=== PATIENT | female | born 1950 | race Two or more races ===

== ENCOUNTER → 2017-11-11 | Outpatient (CLI) | payer MEDICARE, OTHER ==
[~2017-11-11] MED LIST: ADENOSINE 60 MG in GIVE UN-DILUTED 0 ML IV ONE; ADENOSINE 90 MG/30 ML INJ IV ONE; ESOM40CA39; LEVO100T83; LORA-622; PREMARIN
[2017-11-11 12:14] LABS: Basophils # (auto) 0.1 uL; Basophils % (auto) 1.1 % (0.0-2.0); Eosinophils # (auto) 0.2 uL; Eosinophils % (auto) 3.4 % (0.0-7.0); Hematocrit 43.8 % (36.0-46.0); Hemoglobin 14.7 g/dL (12.2-16.2); Lymphocytes % (auto) 30.1 % (10.0-50.0); Mean Corpuscular Hemoglobin 30.8 pg (28.0-32.0); Mean Corpuscular Hgb Conc. 33.5 g/dL (32.0-36.0); Mean Corpuscular Volume 91.8 fL (80.0-100.0); Monocytes # (auto) 0.5 uL; Neutrophils # (auto) 3.8 uL; Neutrophils % (auto) 58.4 % (37.0-80.0); Platelet Count (auto) 227 10^3/uL (140-450); Red Blood Cells 4.76 10^6/uL (4.0-5.20); Red Cell Distribution Width 14.7 % (11.8-14.3); White Blood Cell 6.5 10^3/uL (4.4-10.8)
[2017-11-11 12:27] LABS: Free T4 (Free Thyroxine) 1.16 ng/dL (0.89-1.76)
[2017-11-11 12:45] LABS: Albumin 3.6 g/dL (3.4-5.0); BUN/Creatinine Ratio 19.8; Bilirubin, Total 0.6 mg/dL (0.2-1.0); Calcium 7.8 mg/dL (8.5-10.1); Potassium 3.6 mmol/L (3.5-5.1); Total Protein 7.4 g/dL (6.4-8.2)
[2017-11-11 17:07] LABS: Urine Blood Negative /uL (Negative); Urine Specific Gravity 1.027 (1.001-1.035)
== END | disposition home or self-care (01) ==
LOC: Rad HDHVI 09:32
PROVIDERS: ATTEND Internal Medicine Cardiovascular Disease
DX: E78.00 Pure hypercholesterolemia, unspecified (principal); D64.9 Anemia, unspecified; I10 Essential (primary) hypertension; E03.9 Hypothyroidism, unspecified; E11.9 Type 2 diabetes mellitus without complications; E55.9 Vitamin D deficiency, unspecified; K74.1 Hepatic sclerosis; D51.9 Vitamin B12 deficiency anemia, unspecified; N39.0 Urinary tract infection, site not specified; E78.5 Hyperlipidemia, unspecified; R94.31 Abnormal electrocardiogram [ECG] [EKG]; R42 Dizziness and giddiness; R07.89 Other chest pain
CPT/HCPCS: 36415; 78452; 80053; 80061; 81003; 82306; 82607; 83036; 84439; 84443; 85025; 93005; 96374; 96375; A9500; J0153

== ENCOUNTER → 2017-12-30 | Outpatient (CLI) | payer MEDICARE, OTHER ==
[~2017-12-30] MED LIST changes: -ADENOSINE 60 MG in GIVE UN-DILUTED 0 ML IV ONE; -ADENOSINE 90 MG/30 ML INJ IV ONE
== END | disposition home or self-care (01) ==
LOC: Rad HDHVI 12:59
PROVIDERS: ATTEND Internal Medicine Cardiovascular Disease
DX: I10 Essential (primary) hypertension (principal); R07.89 Other chest pain; E11.9 Type 2 diabetes mellitus without complications
CPT/HCPCS: 93306

== ENCOUNTER → 2018-10-15 | Outpatient (CLI) | payer MEDICARE, OTHER ==
[2018-10-15 11:53] LABS: Basophils # (auto) 0.1 uL; Basophils % (auto) 1.7 % (0.0-2.0); Eosinophils # (auto) 0.3 uL; Eosinophils % (auto) 5.1 % (0.0-7.0); Hematocrit 47.8 % (36.0-46.0); Hemoglobin 15.9 g/dL (12.2-16.2); Lymphocytes # (auto) 2.1 uL; Lymphocytes % (auto) 37.9 % (10.0-50.0); Mean Corpuscular Hgb Conc. 33.3 g/dL (32.0-36.0); Mean Corpuscular Volume 96.1 fL (80.0-100.0); Monocytes # (auto) 0.5 uL; Monocytes % (auto) 8.3 % (0.0-12.0); Neutrophils # (auto) 2.6 uL; Nucleated Red Blood Cells % 0.3 %; Platelet Count (auto) 201 10^3/uL (140-450); Red Blood Cells 4.98 10^6/uL (4.0-5.20); Red Cell Distribution Width 13.5 % (11.8-14.3); White Blood Cell 5.4 10^3/uL (4.4-10.8)
[2018-10-15 11:54] LABS: Urine Blood Negative /uL (Negative); Urine Specific Gravity 1.017 (1.001-1.035)
[2018-10-15 12:02] LABS: Chloride 111 mmol/L (98-107); Potassium 3.6 mmol/L (3.5-5.1); Sodium 140 mmol/L (136-145)
[2018-10-15 12:18] LABS: Alanine Aminotransferase 61 U/L (13-56); Albumin 3.5 g/dL (3.4-5.0); Alkaline Phosphatase 103 U/L (45-117); Anion Gap 9 (5-15); Aspartate Aminotransferase 49 U/L (15-37); Bilirubin, Total 0.6 mg/dL (0.2-1.0); Blood Urea Nitrogen 16 mg/dL (7-18); Calcium 8.4 mg/dL (8.5-10.1); Carbon Dioxide 20 mmol/L (21-32); Cholesterol 129 mg/dL (< 200); GFR African American > 60 mL/min; GFR Non-African American 59 mL/min; Glucose 102 mg/dL (74-106); HDL Cholesterol 50 mg/dL (40-59); LDL Cholesterol 56 mg/dL (< 100); Total Protein 7.3 g/dL (6.4-8.2); Triglycerides 249 mg/dL (< 150)
[2018-10-15 12:30] LABS: Free T4 (Free Thyroxine) 1.53 ng/dL (0.89-1.76)
== END | disposition home or self-care (01) ==
LOC: LAB 09:15
PROVIDERS: ATTEND Internal Medicine
DX: E03.9 Hypothyroidism, unspecified (principal); E11.9 Type 2 diabetes mellitus without complications; D51.9 Vitamin B12 deficiency anemia, unspecified; N39.0 Urinary tract infection, site not specified; E55.9 Vitamin D deficiency, unspecified
CPT/HCPCS: 36415; 80053; 80061; 81003; 82306; 82607; 83036; 84439; 84443; 85025; 87086

== ENCOUNTER → 2018-11-06 | Outpatient (CLI) | payer MEDICARE, OTHER ==
[~2018-11-06] VITALS: Ht 157.5 cm; Wt 75.3 kg
[~2018-11-06] MED LIST changes: +ADENOSINE 63 MG in GIVE UN-DILUTED 0 ML IV ONE; +ADENOSINE 90 MG/30 ML INJ IV ONE
== END | disposition home or self-care (01) ==
LOC: Rad HDHVI 13:49
PROVIDERS: ATTEND Internal Medicine Cardiovascular Disease
DX: I07.1 Rheumatic tricuspid insufficiency (principal); I10 Essential (primary) hypertension; M19.90 Unspecified osteoarthritis, unspecified site; E03.9 Hypothyroidism, unspecified; E78.5 Hyperlipidemia, unspecified
CPT/HCPCS: 78452; 93017; 93306; 96374; A9500; J0153

== ENCOUNTER → 2018-11-28 | Outpatient (CLI) | payer MEDICARE, OTHER ==
[~2018-11-28] MED LIST changes: -ADENOSINE 63 MG in GIVE UN-DILUTED 0 ML IV ONE; -ADENOSINE 90 MG/30 ML INJ IV ONE
== END | disposition home or self-care (01) ==
LOC: Rad HDHVI 13:28
PROVIDERS: ATTEND Internal Medicine Cardiovascular Disease
DX: R91.1 Solitary pulmonary nodule (principal); K76.0 Fatty (change of) liver, not elsewhere classified
CPT/HCPCS: 71250

== ENCOUNTER → 2019-11-11 | Outpatient (CLI) | payer MEDICARE, OTHER ==
[~2019-11-11] MED LIST changes: +IOHEXOL 350 MG/ML 100ML IJ ONE; +diphenhdrAMINE HCL 50 MG/1 ML VL IV ONE; +diphenhdrAMINE HCL 50 MG/1 ML VL ONE; +methylPREDNISolone SOD SUCC 125 MG/2 ML VL IV ONE; +methylPREDNISolone SOD SUCC 125 MG/2 ML VL ONE
[2019-11-11 13:15] VITALS: BP 141/80
--- NOTE | 2019-11-11 13:25 | NUR ---
IV insertion IV access obtained, via clean sterile technique by inserting 22 gauge catheter at after attempt(s). IV secured properly. No trauma to site. Patient tolerated procedure well.
[2019-11-11 14:22] LABS: BUN/Creatinine Ratio 14.3; Calcium 8.3 mg/dL (8.5-10.1); Potassium 3.6 mmol/L (3.5-5.1)
[2019-11-11 15:05] VITALS: BP 135/75
--- NOTE | 2019-11-11 15:05 | NUR ---
IV removal IV DC'd with sterile technique, catheter fully intact. Pressure dressing applied to site. Patient tolerated procedure well. Discharged with aftercare instructions per MD. NOTE: REMOVED BY SCOOTER CLIFTON
--- NOTE | 2019-11-11 15:05 | NUR ---
Discharge Instructions See e-MAR for any mediations given with this visit. Patient education given on disease process. Patient verbalized understanding. Previous labs reviewed. Patient discharged in stable condition with after care instructions and follow up appointment. MEDICATIONS BENADRYL IVP SOLUMEDROL IVP Addendum: 11/11/19 at 1516 by JUAN J ADKINS RN AR PT PREMEDICATED PRIOR TO CT DUE TO ALLERGIES TO IODINE. PT TOLERATED THE CT WELL
[2019-11-11 16:01] LABS: Basophils # (auto) 0.1 uL; Basophils % (auto) 1.1 % (0.0-2.0); Eosinophils # (auto) 0.3 uL; Eosinophils % (auto) 4.6 % (0.0-7.0); Hematocrit 46.3 % (36.0-46.0); Hemoglobin 15.8 g/dL (12.2-16.2); Lymphocytes # (auto) 1.9 uL; Lymphocytes % (auto) 32.7 % (10.0-50.0); Mean Corpuscular Hemoglobin 32.4 pg (28.0-32.0); Mean Corpuscular Hgb Conc. 34.2 g/dL (32.0-36.0); Mean Corpuscular Volume 94.8 fL (80.0-100.0); Monocytes # (auto) 0.6 uL; Neutrophils # (auto) 2.9 uL; Neutrophils % (auto) 51.6 % (37.0-80.0); Nucleated Red Blood Cells % 0.5 %; Platelet Count (auto) 219 10^3/uL (140-450); Red Blood Cells 4.88 10^6/uL (4.0-5.20); Red Cell Distribution Width 13.3 % (11.8-14.3); White Blood Cell 5.7 10^3/uL (4.4-10.8)
[2019-11-11 16:13] LABS: Albumin 3.6 g/dL (3.4-5.0); Bilirubin, Direct 0.1 mg/dL (0-0.2); Magnesium 1.9 mg/dL (1.6-2.6)
[2019-11-11 16:16] LABS: Bilirubin, Total 0.7 mg/dL (0.2-1.0); Total Protein 7.3 g/dL (6.4-8.2)
== END | disposition home or self-care (01) ==
LOC: Rad HDHVI 13:02
PROVIDERS: ATTEND Internal Medicine
DX: E03.9 Hypothyroidism, unspecified (principal); K90.9 Intestinal malabsorption, unspecified; I10 Essential (primary) hypertension; D51.9 Vitamin B12 deficiency anemia, unspecified; R91.8 Other nonspecific abnormal finding of lung field; Z79.899 Other long term (current) drug therapy
CPT/HCPCS: 36415; 80048; 80061; 80076; 82306; 82607; 83036; 83735; 84443; 85025; 96374; 96375; G0463; J1200; J2930; Q9967

== ENCOUNTER → 2020-04-12 | Outpatient (CLI) | payer MEDICARE, OTHER ==
[~2020-04-12] MED LIST changes: -IOHEXOL 350 MG/ML 100ML IJ ONE; -diphenhdrAMINE HCL 50 MG/1 ML VL IV ONE; -diphenhdrAMINE HCL 50 MG/1 ML VL ONE; -methylPREDNISolone SOD SUCC 125 MG/2 ML VL IV ONE; -methylPREDNISolone SOD SUCC 125 MG/2 ML VL ONE
== END | disposition home or self-care (01) ==
LOC: Rad HDHVI 13:37
PROVIDERS: ATTEND Internal Medicine
DX: R91.1 Solitary pulmonary nodule (principal)
CPT/HCPCS: 71250

== ENCOUNTER → 2020-10-21 | Outpatient (CLI) | payer MEDICARE, OTHER ==
[~2020-10-21] MED LIST changes: +LEVO100T3; -LEVO100T83
== END | disposition home or self-care (01) ==
LOC: Rad HDHVI 15:23
PROVIDERS: ATTEND Internal Medicine Cardiovascular Disease
DX: R06.02 Shortness of breath (principal)
CPT/HCPCS: 71046

== ENCOUNTER → 2021-03-13 | Outpatient (CLI) | payer MEDICARE, OTHER | END | disposition home or self-care (01) | LOC: Rad HDHVI 11:53 | PROVIDERS: ATTEND Internal Medicine | DX: I67.82 Cerebral ischemia (principal); I67.2 Cerebral atherosclerosis; G31.89 Other specified degenerative diseases of nervous system; G93.89 Other specified disorders of brain | CPT/HCPCS: 70450 ==

== ENCOUNTER → 2021-03-23 | Outpatient (CLI) | payer MEDICARE, OTHER ==
[2021-03-23 12:04] LABS: Basophils # (auto) 0.1 10 ^3/uL (0-0.2); Basophils % (auto) 2.1 % (0.0-2.0); Eosinophils # (auto) 0.2 10 ^3/uL (0-0.8); Hematocrit 45.7 % (36.0-46.0); Hemoglobin 15.5 g/dL (12.2-16.2); Lymphocytes # (auto) 2.2 10 ^3/uL (0.4-5.4); Lymphocytes % (auto) 38.5 % (10.0-50.0); Mean Corpuscular Hemoglobin 31.7 pg (28.0-32.0); Mean Corpuscular Hgb Conc. 33.8 g/dL (32.0-36.0); Mean Corpuscular Volume 93.6 fL (80.0-100.0); Monocytes # (auto) 0.5 10 ^3/uL (0-1.3); Monocytes % (auto) 8.5 % (0.0-12.0); Neutrophils # (auto) 2.8 10 ^3/uL (1.6-8.6); Neutrophils % (auto) 47.9 % (37.0-80.0); Nucleated Red Blood Cells % 0.1 %; Platelet Count (auto) 217 10^3/uL (140-450); Red Blood Cells 4.88 10^6/uL (4.0-5.20); Red Cell Distribution Width 13.8 % (11.8-14.3); White Blood Cell 5.8 10^3/uL (4.4-10.8)
[2021-03-23 12:15] LABS: Urine Blood Negative /uL (Negative); Urine Specific Gravity 1.022 (1.001-1.035)
[2021-03-23 12:16] LABS: Albumin 3.4 g/dL (3.4-5.0); Calcium 8.9 mg/dL (8.5-10.1); Potassium 3.6 mmol/L (3.5-5.1)
[2021-03-23 12:21] LABS: Bilirubin, Total 0.6 mg/dL (0.2-1.0); Total Protein 6.9 g/dL (6.4-8.2)
[2021-03-23 12:23] LABS: Free T4 (Free Thyroxine) 1.28 ng/dL (0.89-1.76)
== END | disposition home or self-care (01) ==
LOC: LAB 11:13
PROVIDERS: ATTEND Internal Medicine
DX: D51.3 Other dietary vitamin B12 deficiency anemia (principal); I10 Essential (primary) hypertension; E11.9 Type 2 diabetes mellitus without complications; E55.9 Vitamin D deficiency, unspecified; D64.9 Anemia, unspecified; R00.2 Palpitations; R53.1 Weakness; R30.0 Dysuria
CPT/HCPCS: 36415; 80053; 80061; 81003; 82306; 82607; 83036; 84439; 84443; 85025; 85049

== ENCOUNTER → 2021-05-09 | Outpatient (CLI) | payer MEDICARE, OTHER ==
[~2021-05-09] MED LIST changes: +IOHEXOL 350 MG/ML 100ML IJ ONE; +diphenhdrAMINE HCL 50 MG/1 ML VL IV ONE; +diphenhdrAMINE HCL 50 MG/1 ML VL ONE; +methylPREDNISolone SOD SUCC 125 MG/2 ML VL IM ONE; +methylPREDNISolone SOD SUCC 125 MG/2 ML VL IV ONE; +methylPREDNISolone SOD SUCC 125 MG/2 ML VL ONE
[2021-05-09 14:14] VITALS: BP 126/80
[2021-05-09 15:56] VITALS: BP 148/80
== END | disposition home or self-care (01) ==
LOC: Rad HDHVI 13:10
PROVIDERS: ATTEND Internal Medicine
DX: I70.0 Atherosclerosis of aorta (principal); K76.0 Fatty (change of) liver, not elsewhere classified; R07.9 Chest pain, unspecified; R06.02 Shortness of breath; R42 Dizziness and giddiness; R94.4 Abnormal results of kidney function studies; I10 Essential (primary) hypertension; E11.9 Type 2 diabetes mellitus without complications; E55.9 Vitamin D deficiency, unspecified; R53.1 Weakness; D51.9 Vitamin B12 deficiency anemia, unspecified
CPT/HCPCS: 36415; 71260; 82565; 96374; 96375; G0463; J1200; J2930; Q9967

== ENCOUNTER 2021-06-21 08:56 | Day surgery (SDC) | payer MEDICARE, OTHER ==
[~2021-06-21] VITALS: Ht 157.5 cm; Wt 74.8 kg
[~2021-06-21 08:56] MED LIST changes: +ALBUAER3 IN; +ASPI1TAB19 PO; +CHOL20007 PO; +CYCL-614 PO; -ESOM40CA39; +EST0625T PO; +FLUT1AER3 IN; +FURO20TA3 PO; -IOHEXOL 350 MG/ML 100ML IJ ONE; -LEVO100T3; +LEVO100T3 PO; -LORA-622; +LORA-622 PO; +NITR0.4S29 SL; +OMEP-263 PO; +POTA8TAB2 PO; -PREMARIN; +ROSU40TA PO; +VITA400T4 PO; -diphenhdrAMINE HCL 50 MG/1 ML VL IV ONE; -diphenhdrAMINE HCL 50 MG/1 ML VL ONE; -methylPREDNISolone SOD SUCC 125 MG/2 ML VL IM ONE; -methylPREDNISolone SOD SUCC 125 MG/2 ML VL IV ONE; -methylPREDNISolone SOD SUCC 125 MG/2 ML VL ONE
[2021-06-21] MEDS ORDERED: IODIXANOL 320MG/ML 100ML BTL IV ONE (09:37)
[2021-06-21] MEDS ORDERED: LIDOCAINE 2%HCL (LOCAL ANESTH.) INJ 20ML MDV ONE (09:38)
[2021-06-21] MEDS ORDERED: VERAPAMIL 2.5MG/ML INJ 2ML VIAL IV ONE (09:47)
[2021-06-21] MEDS ORDERED: HEPARIN SODIUM (PORCINE) 5000 UNITS/ML 1ML VIAL ONE (09:47)
[2021-06-21] MEDS ORDERED: diphenhdrAMINE HCL 50 MG/1 ML VL ONE (09:47)
[2021-06-21] MEDS ORDERED: ANGIOMAX 250 MG VIAL IV ONE (09:47)
[2021-06-21] MEDS ORDERED: methylPREDNISolone SOD SUCC 125 MG/2 ML VL ONE (09:47)
[2021-06-21] MEDS ORDERED: SODIUM CHL 0.9% 0 ML ONE (09:48)
[2021-06-21] MEDS ORDERED: fentaNYL CITRATE 100 MCG/2 ML VL ONE (09:48)
[2021-06-21] MEDS ORDERED: MIDAZOLAM HCL 2MG/2ML 2ml VIAL (1mg/ml) ONE (09:48)
[2021-06-21] MEDS ORDERED: FAMOTIDINE (10MG/ML) 2ML VL IV ONE (09:49)
[2021-06-21] MEDS ORDERED: ONDANSETRON HCL 4 MG/2 ML VIAL IV PRN (10:45)
[2021-06-21] MEDS ORDERED: ACETAMINOPHEN 500 MG TAB PO PRN (10:45)
== END 2021-06-21 13:10 | disposition home or self-care (01) ==
LOC: CATH 08:56
PROVIDERS: ATTEND Internal Medicine
DX: I25.10 Atherosclerotic heart disease of native coronary artery without angina pectoris (principal); I10 Essential (primary) hypertension; E78.5 Hyperlipidemia, unspecified; Z79.82 Long term (current) use of aspirin; Z87.891 Personal history of nicotine dependence; Z80.9 Family history of malignant neoplasm, unspecified; Z82.5 Family history of asthma and other chronic lower respiratory diseases; Z20.822 Contact with and (suspected) exposure to COVID-19; Z98.890 Other specified postprocedural states; Z79.899 Other long term (current) drug therapy
CPT/HCPCS: 93458; C1887; C1894; J1200; J1644; J2250; J2930; J3010; J3490; Q9967; U0003; 99152

== ENCOUNTER → 2021-09-07 | Outpatient (CLI) | payer MEDICARE, OTHER ==
[2021-09-07 15:33] LABS: Albumin 3.3 g/dL (3.4-5.0); Calcium 8.2 mg/dL (8.5-10.1); Potassium 3.8 mmol/L (3.5-5.1)
[2021-09-07 15:37] LABS: BUN/Creatinine Ratio 13.1; Bilirubin, Total 0.7 mg/dL (0.2-1.0); Total Protein 6.6 g/dL (6.4-8.2)
== END | disposition home or self-care (01) ==
LOC: LAB 13:05
PROVIDERS: ATTEND Internal Medicine
DX: R94.4 Abnormal results of kidney function studies (principal)
CPT/HCPCS: 36415; 80053

== ENCOUNTER 2021-12-29 12:44 | Emergency (ER) | payer MEDICARE, OTHER ==
[~2021-12-29] VITALS: Ht 157.5 cm; Wt 78.0 kg
[2021-12-29 12:47] VITALS: BP 132/89
[2021-12-29] MEDS ORDERED: KETOROLAC TROMETH 30 MG/ML 1ML VIAL IM ONE (15:30)
== END 2021-12-29 15:39 | disposition home or self-care (01) ==
LOC: ER 12:44
DX: G44.229 Chronic tension-type headache, not intractable (principal); K21.9 Gastro-esophageal reflux disease without esophagitis; Z87.891 Personal history of nicotine dependence
CPT/HCPCS: 70450; 96372; 99284; J1885

== ENCOUNTER 2022-04-11 10:34 | Emergency (ER) | payer MEDICARE, OTHER ==
[~2022-04-11] VITALS: Ht 157.5 cm; Wt 75.3 kg
[2022-04-11] MEDS ORDERED: OMNIPAQUE ORAL SOLN 500ml 12mg/ml PO ONE (11:28)
[2022-04-11 12:17] LABS: Albumin 3.5 g/dL (3.4-5.0); BUN/Creatinine Ratio 10.2; Calcium 9.2 mg/dL (8.5-10.1); Magnesium 1.9 mg/dL (1.6-2.6); Potassium 3.6 mmol/L (3.5-5.1)
[2022-04-11 12:20] LABS: Bilirubin, Total 0.7 mg/dL (0.2-1.0); Total Protein 7.1 g/dL (6.4-8.2)
[2022-04-11 12:29] LABS: Basophils # (auto) 0.1 10 ^3/uL (0-0.2); Basophils % (auto) 1.2 % (0.0-2.0); Eosinophils # (auto) 0.1 10 ^3/uL (0-0.8); Eosinophils % (auto) 1.4 % (0.0-7.0); Hematocrit 46.5 % (36.0-46.0); Hemoglobin 15.8 g/dL (12.2-16.2); Lymphocytes # (auto) 1.1 10 ^3/uL (0.4-5.4); Mean Corpuscular Volume 94.2 fL (80.0-100.0); Monocytes # (auto) 0.6 10 ^3/uL (0-1.3); Monocytes % (auto) 10.2 % (0.0-12.0); Neutrophils # (auto) 4.2 10 ^3/uL (1.6-8.6); Neutrophils % (auto) 69.2 % (37.0-80.0); Nucleated Red Blood Cells % 0.1 %; Red Blood Cells 4.94 10^6/uL (4.0-5.20); Red Cell Distribution Width 13.4 % (11.8-14.3); White Blood Cell 6.1 10^3/uL (4.4-10.8)
[2022-04-11 12:57] LABS: Urine Bacteria MANY /hpf (None Seen); Urine Blood Negative /uL (Negative); Urine Specific Gravity 1.016 (1.001-1.035); Urine WBC 495 /hpf (0 - 5); Urine WBC Clumps PRESENT /hpf (None Seen)
[2022-04-11] MEDS ORDERED: LEVO500T31 PO (15:59)
[2022-04-11 16:24] VITALS: BP 150/76
== END 2022-04-11 16:15 | disposition home or self-care (01) ==
LOC: ER 10:34
DX: N39.0 Urinary tract infection, site not specified (principal); R19.7 Diarrhea, unspecified; K21.9 Gastro-esophageal reflux disease without esophagitis; E03.9 Hypothyroidism, unspecified; Z90.710 Acquired absence of both cervix and uterus; Z87.891 Personal history of nicotine dependence; Z79.82 Long term (current) use of aspirin; Z79.899 Other long term (current) drug therapy; Z88.0 Allergy status to penicillin; Z88.1 Allergy status to other antibiotic agents; Z88.5 Allergy status to narcotic agent; Z88.8 Allergy status to other drugs, medicaments and biological substances
CPT/HCPCS: 36415; 74176; 80053; 81001; 83735; 84484; 85025; 93005

== ENCOUNTER 2022-05-23 06:07 | Day surgery (SDC) | payer MEDICARE, OTHER ==
[2022-05-18 12:41] LABS: Basophils # (auto) 0.1 10 ^3/uL (0-0.2); Basophils % (auto) 1.2 % (0.0-2.0); Eosinophils # (auto) 0.1 10 ^3/uL (0-0.8); Eosinophils % (auto) 1.2 % (0.0-7.0); Hematocrit 43.1 % (36.0-46.0); Hemoglobin 14.4 g/dL (12.2-16.2); Lymphocytes # (auto) 1.1 10 ^3/uL (0.4-5.4); Lymphocytes % (auto) 23.8 % (10.0-50.0); Mean Corpuscular Hemoglobin 31.3 pg (28.0-32.0); Mean Corpuscular Hgb Conc. 33.4 g/dL (32.0-36.0); Mean Corpuscular Volume 93.7 fL (80.0-100.0); Monocytes # (auto) 0.6 10 ^3/uL (0-1.3); Monocytes % (auto) 12.4 % (0.0-12.0); Neutrophils # (auto) 2.9 10 ^3/uL (1.6-8.6); Neutrophils % (auto) 61.4 % (37.0-80.0); Nucleated Red Blood Cells % 0.1 %; Red Blood Cells 4.61 10^6/uL (4.0-5.20); Red Cell Distribution Width 13.6 % (11.8-14.3); White Blood Cell 4.7 10^3/uL (4.4-10.8)
[2022-05-18 13:08] LABS: INR 0.99 (0.9-1.15); Partial Thromboplastin Time 26.8 sec (24.6-33.4)
[2022-05-18 13:09] LABS: Urine Bacteria NONE SEEN /hpf (None Seen); Urine Blood Negative /uL (Negative); Urine Specific Gravity 1.016 (1.001-1.035); Urine WBC <1 /hpf (0 - 5)
[2022-05-18 13:37] LABS: Potassium 3.4 mmol/L (3.5-5.1)
[2022-05-18 13:56] LABS: Albumin 3.3 g/dL (3.4-5.0); BUN/Creatinine Ratio 9.6; Bilirubin, Total 0.7 mg/dL (0.2-1.0); Calcium 8.5 mg/dL (8.5-10.1); Total Protein 6.6 g/dL (6.4-8.2)
[~2022-05-23] VITALS: Ht 157.5 cm; Wt 76.2 kg
[~2022-05-23 06:07] MED LIST changes: -CYCL-614 PO
[2022-05-23] MEDS ORDERED: ceFAZolin 1GM VL ONE (06:48)
[2022-05-23] MEDS ORDERED: ROPIVACAINE 0.5% (5MG/ML) 20ML AMPULE IJ ONE (06:48)
[2022-05-23] MEDS ORDERED: SUCCINYLCHOLINE CHLORIDE 20 MG/ML 10ML VIAL IV ONE (06:52)
[2022-05-23] MEDS ORDERED: fentaNYL CITRATE 100 MCG/2 ML VL ONE (06:57)
[2022-05-23] MEDS ORDERED: SODIUM CHLORIDE LOCK 10 ML ONE (06:57)
[2022-05-23] MEDS ORDERED: PROPOFOL 10 MG/ML 20 ML IV ONE (06:57)
[2022-05-23] MEDS ORDERED: DexAMETHasone SOD PHOS 10MG/1ML VIAL INJ ONE (06:57)
[2022-05-23] MEDS ORDERED: ONDANSETRON HCL 4 MG/2 ML VIAL ONE (06:57)
[2022-05-23] MEDS ORDERED: MIDAZOLAM HCL 2MG/2ML 2ml VIAL (1mg/ml) ONE (06:57)
[2022-05-23] MEDS ORDERED: CHLORHEXIDINE 4% TOPICAL soln 118ml TOP ONE (07:00)
[2022-05-23] MEDS ORDERED: CLINDAMYCIN 600MG IV 100 ML IV ONE (07:18)
[2022-05-23] MEDS ORDERED: METOCLOPRAMIDE HCL 5MG/ml INJ 2ml VIAL IV PRN (07:30)
[2022-05-23] MEDS ORDERED: MORPHINE SULFATE 4 MG/ML SYR/VIAL IV PRN (07:30)
[2022-05-23] MEDS ORDERED: fentaNYL CITRATE 100 MCG/2 ML VL IV PRN (07:30)
[2022-05-23] MEDS ORDERED: HYDROmorphone HCL 2 MG/ML VL/or syr IV PRN (07:30)
[2022-05-23] MEDS ORDERED: NEOMYCIN-BACITRACIN-POLYM 15GM TOP OINT TOP ONE (08:01)
[2022-05-23] MEDS ORDERED: ALBUTEROL SULF 2.5 MG/0.5ML(0.5%) NEB SOLN NEB ONE (08:45)
[2022-05-23 10:09] VITALS: BP 122/67
== END 2022-05-23 10:15 | disposition home or self-care (01) ==
LOC: SUR 06:07
PROVIDERS: ATTEND Podiatrist Foot & Ankle Surgery
DX: Q66.89 Other specified congenital deformities of feet (principal); J44.9 Chronic obstructive pulmonary disease, unspecified; E78.5 Hyperlipidemia, unspecified; E03.9 Hypothyroidism, unspecified; E66.9 Obesity, unspecified; Z98.890 Other specified postprocedural states; Z79.899 Other long term (current) drug therapy; Z68.30 Body mass index [BMI] 30.0-30.9, adult; Z20.822 Contact with and (suspected) exposure to COVID-19; Z87.891 Personal history of nicotine dependence; Z82.49 Family history of ischemic heart disease and other diseases of the circulatory system; Z80.0 Family history of malignant neoplasm of digestive organs
CPT/HCPCS: 28285; 36415; 80053; 81001; 85025; 85610; 85730; 88305; 88311; 94640; J0330; J0690; J1100; J2250; J2405; J2704; J2795; J3010; J3490; L3260; U0003

== ENCOUNTER → 2022-07-02 | Outpatient (CLI) | payer MEDICARE, OTHER ==
[~2022-07-02] MED LIST changes: +IOHEXOL 350 MG/ML 100ML IJ ONE; +diphenhdrAMINE HCL 50 MG/1 ML VL IV ONE; +diphenhdrAMINE HCL 50 MG/1 ML VL ONE; +methylPREDNISolone SOD SUCC 125 MG/2 ML VL IV ONE; +methylPREDNISolone SOD SUCC 125 MG/2 ML VL ONE
[2022-07-02 14:10] VITALS: BP 147/91
[2022-07-02 14:43] LABS: Basophils # (auto) 0.3 10 ^3/uL (0-0.2); Basophils % (auto) 4.5 % (0.0-2.0); Eosinophils # (auto) 0.1 10 ^3/uL (0-0.8); Hemoglobin 15.3 g/dL (12.2-16.2); Lymphocytes # (auto) 1.6 10 ^3/uL (0.4-5.4); Lymphocytes % (auto) 26.2 % (10.0-50.0); Mean Corpuscular Hemoglobin 31.3 pg (28.0-32.0); Mean Corpuscular Hgb Conc. 33.3 g/dL (32.0-36.0); Mean Corpuscular Volume 94.1 fL (80.0-100.0); Monocytes # (auto) 0.5 10 ^3/uL (0-1.3); Monocytes % (auto) 8.3 % (0.0-12.0); Neutrophils # (auto) 3.5 10 ^3/uL (1.6-8.6); Nucleated Red Blood Cells % 0.1 %; Red Blood Cells 4.89 10^6/uL (4.0-5.20); Red Cell Distribution Width 13.9 % (11.8-14.3); White Blood Cell 5.9 10^3/uL (4.4-10.8)
[2022-07-02 15:00] LABS: Albumin 3.4 g/dL (3.4-5.0); Calcium 8.7 mg/dL (8.5-10.1); Potassium 3.7 mmol/L (3.5-5.1)
[2022-07-02 15:04] LABS: BUN/Creatinine Ratio 12.2; Bilirubin, Total 0.6 mg/dL (0.2-1.0); CRP High Sensitivity 0.69 mg/dL (< 0.3); Total Protein 7.1 g/dL (6.4-8.2)
[2022-07-02 16:22] VITALS: BP 159/81
== END | disposition home or self-care (01) ==
LOC: Rad HDHVI 14:01
PROVIDERS: ATTEND Internal Medicine
DX: R91.1 Solitary pulmonary nodule (principal); K76.0 Fatty (change of) liver, not elsewhere classified; E75.6 Lipid storage disorder, unspecified; R94.4 Abnormal results of kidney function studies; Z79.899 Other long term (current) drug therapy
CPT/HCPCS: 36415; 71260; 80053; 80061; 83036; 85025; 86141; 96374; 96375; G0463; J1200; J2930; Q9967

== ENCOUNTER → 2022-08-31 | Day surgery (SDC) | payer MEDICARE, OTHER ==
[2022-08-29 15:29] LABS: Basophils # (auto) 0.1 10 ^3/uL (0-0.2); Basophils % (auto) 1.8 % (0.0-2.0); Eosinophils # (auto) 0.1 10 ^3/uL (0-0.8); Eosinophils % (auto) 1.3 % (0.0-7.0); Hematocrit 45.3 % (36.0-46.0); Hemoglobin 15.5 g/dL (12.2-16.2); Lymphocytes # (auto) 1.3 10 ^3/uL (0.4-5.4); Lymphocytes % (auto) 22.6 % (10.0-50.0); Mean Corpuscular Hemoglobin 31.8 pg (28.0-32.0); Mean Corpuscular Hgb Conc. 34.1 g/dL (32.0-36.0); Mean Corpuscular Volume 93.1 fL (80.0-100.0); Monocytes # (auto) 0.6 10 ^3/uL (0-1.3); Monocytes % (auto) 10.5 % (0.0-12.0); Neutrophils # (auto) 3.7 10 ^3/uL (1.6-8.6); Neutrophils % (auto) 63.8 % (37.0-80.0); Nucleated Red Blood Cells % 0.1 %; Red Blood Cells 4.87 10^6/uL (4.0-5.20); Red Cell Distribution Width 13.6 % (11.8-14.3); White Blood Cell 5.7 10^3/uL (4.4-10.8)
[2022-08-29 15:44] LABS: INR 0.97 (0.9-1.15); Partial Thromboplastin Time 25.1 sec (24.6-33.4)
[2022-08-29 16:10] LABS: Albumin 3.6 g/dL (3.4-5.0); BUN/Creatinine Ratio 12.6; Bilirubin, Total 0.9 mg/dL (0.2-1.0); Potassium 3.7 mmol/L (3.5-5.1); Total Protein 6.9 g/dL (6.4-8.2)
[~2022-08-31] VITALS: Ht 157.5 cm; Wt 73.9 kg
[~2022-08-31] MED LIST changes: -IOHEXOL 350 MG/ML 100ML IJ ONE; +LIDOCAINE VISCOUS 2% 15ML UD ONE; +MIDAZOLAM HCL 5 MG/ML-1ML VIAL ONE; +SODIUM CHLORIDE LOCK 10 ML ONE; -diphenhdrAMINE HCL 50 MG/1 ML VL IV ONE; +fentaNYL CITRATE 100 MCG/2 ML VL ONE; -methylPREDNISolone SOD SUCC 125 MG/2 ML VL IV ONE; -methylPREDNISolone SOD SUCC 125 MG/2 ML VL ONE
[2022-08-31 14:45] VITALS: BP 119/72
== END | disposition home or self-care (01) ==
LOC: GI 13:01
PROVIDERS: ATTEND Internal Medicine Gastroenterology
DX: R10.13 Epigastric pain (principal); K21.9 Gastro-esophageal reflux disease without esophagitis; K29.50 Unspecified chronic gastritis without bleeding; K25.9 Gastric ulcer, unspecified as acute or chronic, without hemorrhage or perforation; K44.9 Diaphragmatic hernia without obstruction or gangrene; I10 Essential (primary) hypertension; E03.9 Hypothyroidism, unspecified; Z79.899 Other long term (current) drug therapy; Z79.890 Hormone replacement therapy; Z20.822 Contact with and (suspected) exposure to COVID-19; Z90.710 Acquired absence of both cervix and uterus; Z90.49 Acquired absence of other specified parts of digestive tract; Z98.890 Other specified postprocedural states
CPT/HCPCS: 36415; 43239; 80053; 85025; 85610; 85730; 88305; 88312; 88342; J1200; J2250; J3010; J7030; U0003

== ENCOUNTER → 2023-03-25 | Outpatient (CLI) | payer MEDICARE, OTHER ==
[~2023-03-25] MED LIST changes: -LIDOCAINE VISCOUS 2% 15ML UD ONE; -MIDAZOLAM HCL 5 MG/ML-1ML VIAL ONE; -OMEP-263 PO; +OMEP-448 PO; -POTA8TAB2 PO; +POTA8TAB38 PO; -ROSU40TA PO; +ROSU40TA81 PO; -SODIUM CHLORIDE LOCK 10 ML ONE; -diphenhdrAMINE HCL 50 MG/1 ML VL ONE; -fentaNYL CITRATE 100 MCG/2 ML VL ONE
== END | disposition home or self-care (01) ==
LOC: Rad HDHVI 16:10
PROVIDERS: ATTEND Internal Medicine Cardiovascular Disease
DX: J32.9 Chronic sinusitis, unspecified (principal)
CPT/HCPCS: 70220

== ENCOUNTER → 2023-04-05 | Outpatient (CLI) | payer MEDICARE, OTHER | END | disposition home or self-care (01) | LOC: Rad HDHVI 12:57 | PROVIDERS: ATTEND Internal Medicine Cardiovascular Disease | DX: R06.02 Shortness of breath (principal); E78.5 Hyperlipidemia, unspecified | CPT/HCPCS: 93306 ==

== ENCOUNTER → 2023-05-06 | Outpatient (CLI) | payer MEDICARE, OTHER ==
[~2023-05-06] MED LIST changes: +IOHEXOL 350 MG/ML 100ML IJ ONE
[2023-05-06 15:04] VITALS: BP 140/84; PULSE 86; RESP 16; O2SAT 97
[2023-05-06 15:23] VITALS: BP 148/79; PULSE 78; RESP 16; O2SAT 97
== END | disposition home or self-care (01) ==
LOC: Rad HDHVI 14:55
PROVIDERS: ATTEND Internal Medicine Cardiovascular Disease
DX: M47.812 Spondylosis without myelopathy or radiculopathy, cervical region (principal)
CPT/HCPCS: 70491; G0463; Q9967

== ENCOUNTER → 2023-10-29 | Outpatient (CLI) | payer MEDICARE, OTHER ==
[~2023-10-29] VITALS: Ht 157.5 cm; Wt 74.4 kg
[~2023-10-29] MED LIST changes: -IOHEXOL 350 MG/ML 100ML IJ ONE
== END | disposition home or self-care (01) ==
LOC: Rad HDHVI 14:10
PROVIDERS: ATTEND Internal Medicine Cardiovascular Disease
DX: I11.0 Hypertensive heart disease with heart failure (principal); I50.33 Acute on chronic diastolic (congestive) heart failure; R06.02 Shortness of breath; R07.9 Chest pain, unspecified; E78.00 Pure hypercholesterolemia, unspecified; Z82.49 Family history of ischemic heart disease and other diseases of the circulatory system
CPT/HCPCS: 78452; 93017; 96374; A9500

== ENCOUNTER → 2023-10-30 | Outpatient (CLI) | payer MEDICARE, OTHER | END | disposition home or self-care (01) | LOC: Rad HDHVI 14:51 | PROVIDERS: ATTEND Internal Medicine Cardiovascular Disease | DX: I11.0 Hypertensive heart disease with heart failure (principal); I50.33 Acute on chronic diastolic (congestive) heart failure | CPT/HCPCS: 93306 ==

== ENCOUNTER → 2023-12-09 | Outpatient (CLI) | payer MEDICARE, OTHER ==
[~2023-12-09] MED LIST changes: +CYANOCOBALAMIN (B-12) 1000 MCG/1 ML VIAL ONE
== END | disposition home or self-care (01) ==
LOC: Rad HDHVI 16:14
PROVIDERS: ATTEND Internal Medicine Cardiovascular Disease
DX: J32.0 Chronic maxillary sinusitis (principal)
CPT/HCPCS: 70486

== ENCOUNTER → 2024-03-09 | Outpatient (CLI) | payer MEDICARE, OTHER ==
[~2024-03-09] MED LIST changes: -CYANOCOBALAMIN (B-12) 1000 MCG/1 ML VIAL ONE
== END | disposition home or self-care (01) ==
LOC: Rad HDHVI 12:35
PROVIDERS: ATTEND Internal Medicine Cardiovascular Disease
DX: R60.9 Edema, unspecified (principal); M79.605 Pain in left leg; M79.604 Pain in right leg
CPT/HCPCS: 93925; 93970

== ENCOUNTER → 2024-03-16 | Outpatient (CLI) | payer MEDICARE, OTHER | END | disposition home or self-care (01) | LOC: Rad HDHVI 13:23 | PROVIDERS: ATTEND Internal Medicine Cardiovascular Disease | DX: I10 Essential (primary) hypertension (principal); E78.5 Hyperlipidemia, unspecified | CPT/HCPCS: 93880 ==

== ENCOUNTER → 2024-08-17 | Outpatient (CLI) | payer MEDICARE, OTHER ==
--- NOTE | 2024-08-17 13:29 | DVH ---
PARANASAL SINUSES: INDICATION: SINUSITIS TECHNIQUE: 4 views FINDINGS: The paranasal sinuses are well-aerated. No abnormal soft tissue densities or air-fluid levels are present. Osseous alignment is anatomic. No displaced fractures are demonstrated. IMPRESSION: Normal sinus series
== END | disposition home or self-care (01) ==
LOC: Rad HDHVI 11:52
PROVIDERS: ATTEND Internal Medicine Cardiovascular Disease
DX: J32.9 Chronic sinusitis, unspecified (principal)
CPT/HCPCS: 70220

== ENCOUNTER → 2025-03-31 | Outpatient (CLI) | payer MEDICARE, OTHER ==
[~2025-03-31] MED LIST changes: +IOHEXOL 350 MG/ML 100ML IJ ONE
[2025-03-31 14:16] VITALS: BP 128/74; PULSE 61; RESP 16; O2SAT 94
[2025-03-31 14:41] VITALS: BP 138/73; PULSE 60; RESP 16; O2SAT 94
--- NOTE | 2025-03-31 18:54 | DVH ---
EXAM: CT HEAD W WO CONTRAST INDICATION: HEADACHES TECHNIQUE: CT of the head with and without intravenous contrast. Radiation Dose : 1. Head: CT Dose: CTDI volume is 52.23 mGy. Dose-length product is 835.62 mGy*cm The dose indicators for CT are the volume Computed Tomography (CT) Dose Index (CTDIvol) and the Dose Length Product (DLP), and are measured in units of mGy and mGy-cm, respectively. These indicators are not patient dose, but values generated from the CT scanner acquisition factors. The report includes radiation exposure data for exposures received during this examination. COMPARISON: HEAD WITHOUT CONTRAST on DOS: 12/29/21 FINDINGS: There is no evidence of acute intracranial hemorrhage, extra-axial collection, mass effect, midline s hift, herniation or hydrocephalus. The ventricles, sulci and cisterns are age appropriate. The mercado-white differentiation is intact. Patchy periventricular and subcortical white matter hypoattenuation is nonspecific but may be related to small vessel ischemic disease. The visualized paranasal sinuses and mastoid air cells are clear. The surrounding soft tissues and osseous structures are unremarkable. IMPRESSION: 1. No acute intracranial abnormality. Radiation optimization: All CT scans at this facility use at least one of these dose optimization itz hniques: automated exposure control mA and/or kV adjustment per patient size (includes targeted exam s where dose is matched to clinical indication) or iterative reconstruction.
--- NOTE | 2025-04-01 05:17 | DVH ---
Procedure: CT CHEST WITH CONTRAST 03/31/2025 02:23 PM History: CHEST PAIN Comparison: CHEST WITH CONTRAST on DOS: 07/02/22, CHEST WITH CONTRAST on DOS: 05/09/21 Technique: After the uneventful administration of contrast intravenously, CT imaging was performed th rough the chest. Coronal and sagittal reformations were performed by the technologist. 3D image postprocessing was performed on a dedicated workstation and images were used for interpretat ion and reporting. Radiation Dose : CT Dose: CTDI volume is 16.7 mGy. Dose-length product is 534 mGy*cm Findings: Lower neck: Normal thyroid. Lungs: No focal consolidation. Heart/Vascular Structures: Cardiomegaly. Coronary artery calcifications. Lymph Nodes: No adenopathy Pleura: No pleural effusion or significant pneumothorax. Musculoskeletal: No acute osseous abnormality. Soft tissues: Normal. Upper abdomen: Hepatic steatosis. Hepatomegaly. Trace perihepatic ascites. IMPRESSION: No evidence of acute intrathoracic pathology identified. Cardiomegaly. Coronary artery calcifications are present. Hepatic steatosis and hepatomegaly. Small volume perihepatic ascites.
== END | disposition home or self-care (01) ==
LOC: Rad HDHVI 13:46
PROVIDERS: ATTEND Internal Medicine Cardiovascular Disease
DX: R06.02 Shortness of breath (principal); R07.9 Chest pain, unspecified; R05.9 Cough, unspecified; R51.9 Headache, unspecified; I51.7 Cardiomegaly; I25.10 Atherosclerotic heart disease of native coronary artery without angina pectoris; K76.0 Fatty (change of) liver, not elsewhere classified; R16.0 Hepatomegaly, not elsewhere classified; R18.8 Other ascites
CPT/HCPCS: 70470; 71260; G0463; Q9967

== ENCOUNTER 2025-04-12 12:54 | Outpatient (CLI) | payer MEDICARE, OTHER ==
[~2025-04-12 12:54] MED LIST changes: -IOHEXOL 350 MG/ML 100ML IJ ONE
[2025-04-12] MEDS: VANCOMYCIN 1GM/200ML PM 200 ML IV ONE ×2 (13:08→13:31)
[2025-04-12 13:15] VITALS: BP 105/63; PULSE 64; RESP 18; O2SAT 91
[2025-04-12 14:50] VITALS: BP 111/66; PULSE 64; RESP 18; O2SAT 91
== END 2025-04-12 17:00 | disposition home or self-care (01) ==
LOC: CHF HDHVI 12:54
PROVIDERS: ATTEND Internal Medicine Cardiovascular Disease
DX: K04.7 Periapical abscess without sinus (principal); I11.0 Hypertensive heart disease with heart failure; I50.33 Acute on chronic diastolic (congestive) heart failure; E11.9 Type 2 diabetes mellitus without complications; I25.10 Atherosclerotic heart disease of native coronary artery without angina pectoris; J44.9 Chronic obstructive pulmonary disease, unspecified; M19.90 Unspecified osteoarthritis, unspecified site; E78.00 Pure hypercholesterolemia, unspecified; K21.9 Gastro-esophageal reflux disease without esophagitis; E03.9 Hypothyroidism, unspecified; K76.0 Fatty (change of) liver, not elsewhere classified; R51.9 Headache, unspecified; R16.0 Hepatomegaly, not elsewhere classified; R05.9 Cough, unspecified; R18.8 Other ascites; R06.02 Shortness of breath; Z90.710 Acquired absence of both cervix and uterus; Z90.49 Acquired absence of other specified parts of digestive tract; Z79.899 Other long term (current) drug therapy; Z98.890 Other specified postprocedural states; Z87.891 Personal history of nicotine dependence; Z88.8 Allergy status to other drugs, medicaments and biological substances; Z88.1 Allergy status to other antibiotic agents; Z88.0 Allergy status to penicillin; Z88.5 Allergy status to narcotic agent; Z87.440 Personal history of urinary (tract) infections
CPT/HCPCS: 96365; G0463; J3370

== ENCOUNTER 2025-04-13 12:43 | Outpatient (CLI) | payer MEDICARE, OTHER ==
[2025-04-13 12:57] VITALS: BP 110/62; PULSE 62; RESP 16; O2SAT 94
[2025-04-13] MEDS: VANCOMYCIN 1GM/200ML PM 200 ML IV ONE ×2 (13:03→13:30)
[2025-04-13 14:50] VITALS: BP 106/62; PULSE 55; RESP 16; O2SAT 94
== END 2025-04-13 17:00 | disposition home or self-care (01) ==
LOC: CHF HDHVI 12:43
PROVIDERS: ATTEND Internal Medicine Cardiovascular Disease
DX: K04.7 Periapical abscess without sinus (principal); I11.0 Hypertensive heart disease with heart failure; I50.33 Acute on chronic diastolic (congestive) heart failure; I25.10 Atherosclerotic heart disease of native coronary artery without angina pectoris; J44.9 Chronic obstructive pulmonary disease, unspecified; E11.9 Type 2 diabetes mellitus without complications; K21.9 Gastro-esophageal reflux disease without esophagitis; E78.00 Pure hypercholesterolemia, unspecified; E03.9 Hypothyroidism, unspecified; Z79.899 Other long term (current) drug therapy; Z87.891 Personal history of nicotine dependence
CPT/HCPCS: 96365; G0463; J3373

== ENCOUNTER 2025-04-14 11:20 | Outpatient (CLI) | payer MEDICARE, OTHER ==
[2025-04-14 11:25] VITALS: BP 123/72; PULSE 69; RESP 16; O2SAT 97
[2025-04-14] MEDS: IRON SUCROSE 20 mg/ml 10ml VIAL IV ONE (11:40)
[2025-04-14] MEDS: VANCOMYCIN 1GM/200ML PM 200 ML IV ONE ×2 (11:50→11:56)
[2025-04-14 13:07] VITALS: BP 128/72; PULSE 66; RESP 16; O2SAT 97
== END 2025-04-14 17:00 | disposition home or self-care (01) ==
LOC: CHF HDHVI 11:20
PROVIDERS: ATTEND Internal Medicine Cardiovascular Disease
DX: K04.7 Periapical abscess without sinus (principal); I11.0 Hypertensive heart disease with heart failure; I50.33 Acute on chronic diastolic (congestive) heart failure; I25.10 Atherosclerotic heart disease of native coronary artery without angina pectoris; J44.9 Chronic obstructive pulmonary disease, unspecified; E11.9 Type 2 diabetes mellitus without complications; K21.9 Gastro-esophageal reflux disease without esophagitis; E78.00 Pure hypercholesterolemia, unspecified; E03.9 Hypothyroidism, unspecified; Z87.891 Personal history of nicotine dependence; Z79.899 Other long term (current) drug therapy; Z90.49 Acquired absence of other specified parts of digestive tract; Z90.710 Acquired absence of both cervix and uterus
CPT/HCPCS: 96365; G0463; J1756; J3373

== ENCOUNTER 2025-04-15 13:39 | Outpatient (CLI) | payer MEDICARE, OTHER ==
[2025-04-15] MEDS: VANCOMYCIN 1GM/200ML PM 200 ML IV ONE ×2 (13:50→13:57)
[2025-04-15 13:53] VITALS: BP 110/77; PULSE 73; RESP 16; O2SAT 94
[2025-04-15 15:03] VITALS: BP 100/58; PULSE 60; RESP 16; O2SAT 94
[2025-04-16] MEDS ORDERED: MULTIPLE VIT 10 ML IV ONE (11:19)
== END 2025-04-15 17:00 | disposition home or self-care (01) ==
LOC: CHF HDHVI 13:39
PROVIDERS: ATTEND Internal Medicine Cardiovascular Disease
DX: K04.7 Periapical abscess without sinus (principal); I11.0 Hypertensive heart disease with heart failure; I50.33 Acute on chronic diastolic (congestive) heart failure; E11.9 Type 2 diabetes mellitus without complications; I25.10 Atherosclerotic heart disease of native coronary artery without angina pectoris; J44.9 Chronic obstructive pulmonary disease, unspecified; E78.00 Pure hypercholesterolemia, unspecified; K76.0 Fatty (change of) liver, not elsewhere classified; K21.9 Gastro-esophageal reflux disease without esophagitis; E03.9 Hypothyroidism, unspecified; M19.90 Unspecified osteoarthritis, unspecified site; Z90.49 Acquired absence of other specified parts of digestive tract; Z79.899 Other long term (current) drug therapy; Z88.8 Allergy status to other drugs, medicaments and biological substances; Z88.1 Allergy status to other antibiotic agents; Z88.0 Allergy status to penicillin; Z87.891 Personal history of nicotine dependence; Z87.440 Personal history of urinary (tract) infections; Z98.890 Other specified postprocedural states; Z90.710 Acquired absence of both cervix and uterus; Z88.5 Allergy status to narcotic agent
CPT/HCPCS: 96365; G0463; J3373

== ENCOUNTER 2025-04-16 11:44 | Outpatient (CLI) | payer MEDICARE, OTHER ==
[2025-04-16 11:54] VITALS: BP 126/65; PULSE 74; RESP 17; O2SAT 95
[2025-04-16] MEDS: VANCOMYCIN 1GM/200ML PM 200 ML IV ONE ×2 (11:58→12:13)
[2025-04-16 13:40] VITALS: BP 106/65; PULSE 54; RESP 17; O2SAT 95
== END 2025-04-16 17:00 | disposition home or self-care (01) ==
LOC: CHF HDHVI 11:44
PROVIDERS: ATTEND Internal Medicine Cardiovascular Disease
DX: K04.7 Periapical abscess without sinus (principal); I11.0 Hypertensive heart disease with heart failure; I50.33 Acute on chronic diastolic (congestive) heart failure; E11.9 Type 2 diabetes mellitus without complications; E78.00 Pure hypercholesterolemia, unspecified; I25.10 Atherosclerotic heart disease of native coronary artery without angina pectoris; J44.9 Chronic obstructive pulmonary disease, unspecified; E03.9 Hypothyroidism, unspecified; K21.9 Gastro-esophageal reflux disease without esophagitis; M19.90 Unspecified osteoarthritis, unspecified site; Z90.710 Acquired absence of both cervix and uterus; Z90.49 Acquired absence of other specified parts of digestive tract; Z88.1 Allergy status to other antibiotic agents; Z88.5 Allergy status to narcotic agent; Z88.0 Allergy status to penicillin; Z98.890 Other specified postprocedural states; Z88.8 Allergy status to other drugs, medicaments and biological substances; Z79.899 Other long term (current) drug therapy; Z87.891 Personal history of nicotine dependence; Z87.440 Personal history of urinary (tract) infections
CPT/HCPCS: 96365; G0463; J3373

== ENCOUNTER 2025-06-24 07:58 | Day surgery (SDC) | payer MEDICARE, OTHER ==
[2025-06-22 14:21] LABS: Hematocrit 42.3 % (36.0-46.0); Hemoglobin 14.3 g/dL (12.2-16.2); Mean Corpuscular Hemoglobin 30.5 pg (28.0-32.0); Mean Corpuscular Volume 90.7 fL (80.0-100.0); Nucleated Red Blood Cells % 0.0 %
[2025-06-22 14:28] LABS: Urine Protein, UAD 1+ (Negative)
[2025-06-22 14:40] LABS: INR 1.13 (0.9-1.15); Partial Thromboplastin Time 32.9 SEC (24.5-34.5); Prothrombin Time 11.8 sec (9.3-11.8)
[2025-06-22 14:57] LABS: Alanine Aminotransferase 11 U/L (7-40); Albumin 4.0 g/dL (3.2-4.8); Alkaline Phosphatase 109 U/L (46-116); Anion Gap 11 (5-15); BUN/Creatinine Ratio 13.7 (10.0-20.0); Bilirubin, Total 1.0 mg/dL (0.2-1.0); Blood Urea Nitrogen 10 mg/dL (9-23); Calcium 8.9 mg/dL (8.7-10.4); Carbon Dioxide 24 mmol/L (20-31); Chloride 103 mmol/L (98-107); Glucose 99 mg/dL (74-106); Potassium 3.6 mmol/L (3.5-5.1); Sodium 138 mmol/L (136-145); Total Protein 7.3 g/dL (5.7-8.2)
[~2025-06-24] VITALS: Ht 157.5 cm; Wt 67.1 kg
[~2025-06-24 07:58] MED LIST changes: +ALBU1AER4 IN; +CALC-179 OR; -CHOL20007 PO; +CYCL-837 PO; +ICOS1CAP2 PO; +MONT-8 PO; -NITR0.4S29 SL; -VITA400T4 PO
[2025-06-24] MEDS ORDERED: KETAMINE 50mg/ML 1ml syringe IV ONE (07:59)
[2025-06-24] MEDS ORDERED: MIDAZOLAM HCL 2MG/2ML 2ml VIAL (1mg/ml) ONE (08:33)
[2025-06-24] MEDS ORDERED: fentaNYL CITRATE 100 MCG/2 ML VL ONE (08:33)
[2025-06-24] MEDS ORDERED: ONDANSETRON HCL 4 MG/2 ML VIAL ONE (08:33)
[2025-06-24] MEDS ORDERED: PROPOFOL 10 MG/ML 20 ML IV ONE (08:33)
[2025-06-24] MEDS ORDERED: SODIUM CHLORIDE LOCK 10 ML ONE (08:33)
[2025-06-24] MEDS ORDERED: LIDOCAINE VISCOUS 2% 15ML UD ONE (08:52)
[2025-06-24 09:24] VITALS: PULSE 70; RESP 16; TEMP 97; O2SAT 95
--- NOTE | 2025-06-24 09:28 | DVHHP2 ---
GI H&P Pre-Op Assessment Date: 06/24/25 Chief complaint: abdominal pain HPI: per clinic note Past medical history: per clinic note Past surgical history: per clinic note Family history: per clinic note Physical exam: General: NAD, AAOX3 HEENT: PERRL, no scleral icterus, normal hearing, gums without lesions or ble eding, oropharynx clear without erythema or exudate. Neck: Supple without enlargement of the thyroid, or lymphadenopathy. Chest: Normal size and shape, no tenderness, lung gil clear to auscultation and percussion, nonlabored breathing. Heart: RRR, no murmur Abdomen: non-distended, no tenderness to palpation, +BS, no hepatosplenomegaly Extremities: no edema Neurological: CN II-XII intact, sensation intact in all extremities, 5+ strength in all extremities Skin: No rashes, No jaundice Assessment: - abdominal pain Plan: - EGD - Colonoscopy - Risks (bleeding, infection, perforation, reaction to sedation medications and cardiopulmonary arrest) and benefit of the procedure were explained to patient. Patient agrees to undergo the procedure. ОЛЬГА MODI MD Jun 24, 2025 09:28
--- NOTE | 2025-06-24 09:29 | DVHOP2 ---
Operative Report DATE OF OPERATION: 06/24/25 PROCEDURE: Upper Endoscopy. PREOPERATIVE INDICATION: The patient is a 74 -year-old female undergoing endoscopy for abdominal pain. POSTOPERATIVE DIAGNOSES: 1. Slight gastritis PROCEDURE PERFORMED BY: Ronnie Nuñez SCOPE: Olympus videoendoscope. ASA CLASS: 3 PREOPERATIVE MEDICATIONS: MAC with Dr Colin PROCEDURE IN DETAIL: After obtaining an informed consent, the patient was placed on left lateral decubitus position. The patient was then sedated with the above medications. A bite block was placed between her teeth. The endoscope was then passed through the oropharynx, into the esophagus, and through the stomach and pylorus up to the second and third part of the duodenum. The duodenum was normal in appearance. There was slight gastritis. Gastric biopsies were obtained using cold forceps. The GE junction was normal in appearance at 36 cm. The esophagus was normal in appearance. The endoscope was then withdrawn. The patient tolerated the procedure well without difficulty. COMPLICATIONS : None SPECIMENS: Gastric biopsies DISPOSITION: D/C to home PLAN: 1. Await for biopsy result RONNIE NUÑEZ MD Jun 24, 2025 09:29
--- NOTE | 2025-06-24 09:32 | DVHOP2 ---
Operative Report DATE OF OPERATION: 06/24/25 PROCEDURE: Colonoscopy. PREOPERATIVE INDICATION: The patient is a 74 -year-old female undergoing colonoscopy for abdominal pain. POSTOPERATIVE DIAGNOSES: 1. Large sigmoid polyp (4-5 cm) the was 15 cm from the anal verge. It was too large to be removed. Biopsies of the polyp were taken. PROCEDURE PERFORMED BY: Ronnie Nuñez M.D. SCOPE: Olympus videocolonoscope. ASA CLASS: 3 PREOPERATIVE MEDICATIONS: MAC with Dr Colin PROCEDURE IN DETAIL: After obtaining an informed consent, the patient was placed on left lateral decubitus position. She was then sedated with the above medications. A rectal examination was performed that was normal. The colonoscope was then passed through the anus into the rectosigmoid and through the descending, transverse, and ascending colon up to the cecum with visu alization of the appendiceal orifice, base of the cecum and the ileocecal valve. There was a large sigmoid polyp (4-5 cm) the was 15 cm from the anal verge. It was too large to be removed. Biopsies of the polyp were taken with cold forceps. The polyp was tattooed. The colonoscope was then withdrawn. The patient tolerated the procedure well without difficulty. WITHDRAWAL TIME: 11 minutes QUALITY OF THE PREP: [place] Bowel Prep score: 6 COMPLICATIONS : None SPECIMENS: Colon polyp biopsy DISPOSITION: D/C to home PLAN: 1. Await biopsy result 2. Patient might need surgery to remove the polyp. RONNIE NUÑEZ MD Jun 24, 2025 09:32
--- NOTE | 2025-06-24 09:32 | DVHDS2 ---
Physician Discharge Progress N Final Diagnosis: gastritis Sigmoid polyp Operations or Procedures: Operations or Procedures EGD with cold biopsy Colonoscopy with cold biopsy Condition on Discharge: Good Disposition: Home Discharge Instructions: Diet: Regular Activity: No Restrictions, As Tolerated Medications: Resume with previous home medications Follow Up Care: Discharge Statement: "Patient was advised to return to the ER or call 911 if any headaches, dizziness, shortness of breath, chest pain, abdominal pain, bleeding, fevers, or worsening of medical condition. Patient was counseled about treatment plan, medications, possible side effects, patientverbalized understanding. All questions were answered to the best of my ability. This discharge took greater then 30 minutes in planning, reviewing documentation, counseling the patient, and discussing with other team members." ОЛЬГА MODI MD Jun 24, 2025 09:32
[2025-06-24 09:55] VITALS: BP 111/76; PULSE 72; RESP 16; O2SAT 95
== END 2025-06-24 10:20 | disposition home or self-care (01) ==
LOC: GI 07:58
PROVIDERS: ATTEND Internal Medicine Gastroenterology
DX: R10.9 Unspecified abdominal pain (principal); C18.7 Malignant neoplasm of sigmoid colon; K63.5 Polyp of colon; K29.50 Unspecified chronic gastritis without bleeding; E78.00 Pure hypercholesterolemia, unspecified; E03.9 Hypothyroidism, unspecified; J44.9 Chronic obstructive pulmonary disease, unspecified; Z98.890 Other specified postprocedural states; Z88.5 Allergy status to narcotic agent; Z88.8 Allergy status to other drugs, medicaments and biological substances
CPT/HCPCS: 36415; 43239; 45380; 45381; 80053; 81001; 85025; 85610; 85730; 88305; 88342; J2250; J2405; J2704; J3010; J7030

== ENCOUNTER 2025-07-15 14:49 | Emergency (ER) | payer MEDICARE, OTHER ==
[~2025-07-15] VITALS: Ht 157.5 cm; Wt 65.4 kg
[2025-07-15 14:51] VITALS: BP 136/81; PULSE 96; RESP 18; TEMP 97.3; O2SAT 96
--- NOTE | 2025-07-15 15:34 | ED.PDOC ---
GI ASSESSMENT HPI Comments This is a 74 year old female presenting to the ED with chief complaint of abdominal pain. Patient reports that she has been experiencing worsening 10/10 diffuse abdominal pain with associated abdominal distention and diarrhea since November. Patient relays that she was recently diagnosed with Ovarian cancer on 06/24/25, following up with [facility]. Patient states she was sent by Dr. Montiel from [facility] to come to the ED for paracentesis and to see Dr. Aponte. Patient denies any nausea, vomiting, dysuria, fever, chills, melena, or SOB. Chief Complaint: Abdominal Pain Time Seen by MD: 15:32 Primary Care Provider: ROXANA Reviewed Notes: Nurses Notes, Medications, Allergies Allergies: Coded Allergies: Amoxicillin (Verified Allergy, Intermediate, NAUSEA, VOMITTING, 06/16/21) Clavulanic Acid (Verified Allergy, Intermediate, NAUSEA, VOMITTING, 06/16/21) Codeine (Verified Allergy, Intermediate, NAUSEA, VOMITTING, 06/16/21) Moxifloxacin (Verified Allergy, Intermediate, NAUSEA, VOMITTING, 06/16/21) Penicillins (Verified Allergy, Intermediate, NAUSEA, VOMITTING, 06/16/21) Rofecoxib (Verified Allergy, Intermediate, NAUSEA, VOMITTING, 06/16/21) Iodine (Verified Allergy, Mild, RASH, 06/16/21) Cephalexin (Unverified Allergy, Unknown, numbness in limbs, blurred vision , 06/22/25) Levofloxacin (Unverified Allergy, Unknown, numbness in limbs, blurred vision , 06/22/25) Terconazole (Unverified Allergy, Unknown, numbness in limbs, blurred vision , 06/22/25) Clarithromycin (Unverified Adverse Reaction, Unknown, N/V, 06/22/25) Uncoded Allergies: CILLIN (Allergy, Intermediate, NAUSEA, VOMITTING, 06/16/21) Home Meds Reported Medications Montelukast Sodium (MONTELUKAST SODIUM) 10 Mg Tab, 1 TAB PO DAILY, #90 TAB 3 Refills 06/22/25 Epa Ethyl Yris (Vascepa) 0.5 Gm Cap, 0.5 GM PO, CAP 06/22/25 Calcium W/ Magnesium (Calcium & Magnesium) Tab, 1 OR, TAB 06/22/25 Albuterol Sulfate (Proair Respiclick) 108 Mcg/Act Aer, 108 MCG IN, AER 06/22/25 Cyclobenzaprine Hcl (Cyclobenzaprine Hcl) 5 Mg Tab, 1 TAB PO TID, #30 TAB 06/22/25 Estrogens, Conjugated (PREMARIN TABLET) 0.625 Mg Tb, 0.625 MG PO QAM for POST- MENOPAUSAL 06/16/21 Furosemide (Furosemide) 20 Mg Tab, 20 MG PO QAM for CHF 06/16/21 Omeprazole (Omeprazole Dr) 40 Mg Cap, 40 MG PO QAM for GERD 06/16/21 Uqtllrevxju-Zsbutkavtxor-Hmxrt (Trelegy Ellipta 100-62.5-25 Mcg/INH) 1 Aer Aer, 1 PUFF IN QPM for ASTHMA 06/16/21 Albuterol Sulfate (VENTOLIN MDI) 90 Mcg Ih, 2 PUFF IN Q6HP PRN for SHORTNESS OF BREATH 06/16/21 Potassium Chloride (Klor-Con 8) 8 Meq Tab, 8 MEQ PO QAM for SUPPLEMENT 06/16/21 Rosuvastatin Calcium (Crestor) 40 Mg Tab, 1 TAB PO QPM for HIGH CHOLESTEROL 06/16/21 Aspirin (Aspirin) 81 Mg Tab, 81 MG PO QAM for HEART ATTACK PREVENTION 06/16/21 Levothyroxine Sodium (Synthroid) 100 Mcg Tab, 100 MCG PO QAM for HYPOTHYROIDISM 05/28/11 Loratadine (Claritin) 10 Mg Tab, 10 MG PO QAM for ALLERGIES 05/28/11 Information Source: Patient, Spouse Mode of Arrival: Ambulatory Timing: Months Duration: Since onset Prehospital treatment: None Quality: Aching Vomitus: None Stool: Watery Severity: Moderate Recent: None Recent Hx of: Other (Ovarian cancer diagnosis) Pain Location: Diffuse Modifying Factors: Nothing Associated sign and symptoms: Diarrhea, Abdominal Pain Past Medical History PAST MEDICAL HISTORY: Anxiety, Cancer (Ovarian), GERD, Thyroid, UTI'S Past Medical History (Other): Gastritis Surgical History: Appendectomy, Hysterectomy Surgical History (Other): Deviated septum, Tummy tuck [employer] History: Denies all [employer] Hx Family History Family History: Reviewed,noncontributory to illness, No family hx of Cancer, No family hx of Heart jory Social History Smoker: Quit Greater Than 1 Year Alcohol: Occasionally Drugs: Denies Drug Use Lives In: Home Constitutional: denies: chills, diaphoresis, fatigue, fever, malaise, sweats, weakness, others EENTM: denies: blurred vision, double vision, ear bleeding, ear discharge, ear drainage, ear pain, ear ringing, eye pain, eye redness, hearing loss, mouth pain, mouth swelling, nasal discharge, nose bleeding, nose congestion, nose pain, photophobia, tearing, throat pain, throat swelling, voice changes, others Respiratory: denies: cough, hemoptysis, orthopnea, SOB at rest, shortness of breath, SOB with excertion, stridor, wheezing, others Cardiovascular: denies: chest pain, dizzy spells, diaphoresis, Dyspnea on exertion, edema, irregular heart beat, left arm pain, lightheadedness, palpitations, PND, syncope, others Gastrointestinal: reports: abdomen distended, abdominal pain, diarrhea; denies: blood streaked bowels, constipated, dysphagia, difficulty swallowing, hematemes is, melena, nausea, poor appetite, poor fluid intake, rectal bleeding, rectal pain, vomiting, others Genitourinary: denies: abnormal vagina bleeding, burning, dyspareunia, dysuria, flank pain, frequency, hematuria, incontinence, pain, , vagina discharge, urgency, others Neurological: denies: dizziness, fainting, headache, left sided numbness, left sided weakness, numbness, paresthesia, pre-existing deficit, right sided numbness, right sided weakness, seizure, speech problems, tingling, tremors, weakness, others Musculoskeletal: denies: back pain, gout, joint pain, joint swelling, muscle pain, muscle stiffness, neck pain, others Integumetry: denies: bruises, change in color, change in hair/nails, dryness, laceration, lesions, lumps, rash, wounds, others Allergic/Immunocompromised: denies: Difficulty Healing, Frequent Infections, Hives, Itching, others Hematologic/Lymphatic: denies: anemia, blood clots, easy bleeding, easy bruising, swollen glands, others Endocrine: denies: excessive hunger, excessive sweating, excessive thirst, excessive urination, flushing, intolerance to cold, intolerance to heat, un explained weight gain, unexplained weight loss, others Psychiatric: denies: anxiety, bipolar disorder, depression, hopeless, panic disorder, schizophrenia, sleepless, suicidal, others All Other Systems: Reviewed and Negative Physical Exam General Appearance: Moderate Distress HEENT: Normal ENT Inspection, Pharynx Normal, TMs Normal Neck: Full Range of Motion, Non-Tender, Normal, Normal Inspection Respiratory: Chest Non-Tender, Lungs Clear, No Accessory Muscle Use, No Respiratory Distress, Normal Breath Sounds Cardiovascular: No Edema, No JVD, No Murmur, No Gallop, Normal Peripheral Pulses, Regular Rate/Rhythm Breast Exam: Deferred Gastrointestinal: Normal Bowel Sounds, Other (Ascites) Genitalia: Deferred Pelvic: Deferred Rectal: Deferred Extremities: No calf tenderness, Normal capillary refill, Normal inspection, Normal range of motion, Non-tender, No pedal edema Musculoskeletal : Apperance: Normal Neurologic: Alert, convention manager II-XII nml as Tested, Motor Weakness, Normal Affect, Normal Mood, No Sensory Deficits Cerebellar Function: Normal Reflexes: Normal Skin: Dry, Normal Color, Warm Lymphatic: No Adenopathy Was a procedure done? Was a procedure done?: No GI differential Dx Differential Diagnosis: Gastritis/PUD, Gastroenteritis, Pancreatitis, UTI, Electrolyte Imbalance X-Ray, Labs, Meds, VS Vital Signs Date Time Temp Pulse Resp B/P (MAP) Pulse Ox O2 Delivery O2 Flow Rate FiO2 07/15/25 14:51 97.3 96 18 136/81 96 97.3 Lab Test 07/15/25 15:41 Range/Units White Blood Count 4.9 4.4-10.8 10^3/uL Red Blood Count 4.45 4.0-5.20 10^6/uL Hemoglobin 13.5 12.2-16.2 g/dL Hematocrit 40.4 36.0-46.0 % Mean Corpuscular Volume 90.7 80.0-100.0 fL Mean Corpuscular Hemoglobin 30.3 28.0-32.0 pg Mean Corpuscular Hemoglobin Concent 33.4 32.0-36.0 g/dL Red Cell Distribution Width 15.5 H 11.8-14.3 % Platelet Count 328 140-450 10^3/uL Mean Platelet Volume 8.7 6.9-10.8 fL Neutrophils (%) (Auto) 67.7 37.0-80.0 % Lymphocytes (%) (Auto) 18.9 10.0-50.0 % Monocytes (%) (Auto) 11.8 0.0-12.0 % Eosinophils (%) (Auto) 0.7 0.0-7.0 % Basophils (%) (Auto) 0.9 0.0-2.0 % Neutrophils # (Auto) 3.3 1.6-8.6 10 ^3/uL Lymphocytes # (Auto) 0.9 0.4-5.4 10 ^3/uL Monocytes # (Auto) 0.6 0-1.3 10 ^3/uL Eosinophils # (Auto) 0 0-0.8 10 ^3/uL Basophils # (Auto) 0 0-0.2 10 ^3/uL Nucleated Red Blood Cells 0.1 % Prothrombin Time Pending Prothrombin Time INR Pending Activated Partial Thromboplast Time Pending Sodium Level Pending Potassium Level Pending Chloride Level Pending Carbon Dioxide Level Pending Anion Gap Pending Blood Urea Nitrogen Pending Creatinine Pending Glomerular Filtration Rate Calc Pending BUN/Creatinine Ratio Pending Serum Glucose Pending Calcium Level Pending Total Bilirubin Pending Aspartate Amino Transferase (AST) Pending Alanine Aminotransferase (ALT) Pending Alkaline Phosphatase Pending Total Protein Pending Albumin Pending CBC was ordered and is within normal limits The chemistry panel and INR was also ordered but at this time the patient states that she wants to sign out AMA. We ordered for the paracentesis to be done but it will be done tomorrow and the patient states that she is leaving. She states that she will come back tomorrow. We warned her that her abdominal pain and swelling could get worse but she states that she is leaving at this time Time of 1ST Reevaluation: 16:14 Reevaluation 1ST: Unchanged Patient Education/Counseling: Diagnosis, Treatment, Prognosis Family Education/Counseling: Diagnosis, Treatment, Prognosis SEPSIS Sepsis Screen Date sepsis recognized/suspect: Jul 15, 2025 Time Sepsis recognized/suspect: 1453 Recent Procedure: No On Antibiotic Therapy: No Respiratory Rate >20: No Heart Rate >90: Yes Temp<36 C (96.8 F) or >38.3 C: No SBP <90 or MAP <65 mmHG: No New Acute Mental Status Change: No Is the patient on CPAP, BIPAP,: No Physician Orders Comprehensive Metabolic Panel (07/15/25 15:33) Heplock Iv (07/15/25 15:33) PTPTT (07/15/25 15:33) Paracentesis (07/15/25 15:33) Paracentesis (07/16/25 09:00) Vital Signs Date Time Temp Pulse Resp B/P (MAP) Pulse Ox O2 Delivery O2 Flow Rate FiO2 07/15/25 14:51 97.3 96 18 136/81 96 97.3 Laboratory Tests Test 07/15/25 15:41 White Blood Count 4.9 10^3/uL (4.4-10.8) Departure 1 Departure Time of Disposition: 16:14 Impression: Primary Impression: Ascites Qualified Codes: R18.0 - Malignant ascites Additional Impressions: Ovarian cancer Qualified Codes: C56.9 - Malignant neoplasm of unspecified ovary Abdominal pain Qualified Codes: R10.9 - Unspecified abdominal pain Disposition: LEFT AGAINST MEDICAL ADVICE Condition: Fair Critical Care Note Critical Care Time?: No Stability Stability form required: No Heart Score Heart Score: Heart Score Response (Comments) Value History N/A 0 EKG N/A 0 Age N/A 0 Risk Factors N/A 0 Troponin N/A 0 Total 0 I personally scribed for COLE NEGRETE MD ([email or web address]) on 07/15/25 at 15:34. Electronically submitted by Blaise Lin ([email or web address]). COLE NEGRETE MD Jul 15, 2025 15:34
[2025-07-15 15:58] LABS: Hematocrit 40.4 % (36.0-46.0); Hemoglobin 13.5 g/dL (12.2-16.2); Mean Corpuscular Hemoglobin 30.3 pg (28.0-32.0); Mean Corpuscular Volume 90.7 fL (80.0-100.0); Nucleated Red Blood Cells % 0.1 %
[2025-07-15 16:14] LABS: Alanine Aminotransferase 16 U/L (7-40); Albumin 3.6 g/dL (3.2-4.8); Alkaline Phosphatase 96 U/L (46-116); Anion Gap 13 (5-15); BUN/Creatinine Ratio 16.2 (10.0-20.0); Bilirubin, Total 0.4 mg/dL (0.2-1.0); Blood Urea Nitrogen 11 mg/dL (9-23); Calcium 8.1 mg/dL (8.7-10.4); Carbon Dioxide 22 mmol/L (20-31); Chloride 105 mmol/L (98-107); Glucose 102 mg/dL (74-106); Potassium 3.7 mmol/L (3.5-5.1); Sodium 140 mmol/L (136-145); Total Protein 6.6 g/dL (5.7-8.2)
[2025-07-15 16:19] LABS: INR 1.18 (0.9-1.15); Partial Thromboplastin Time 31.6 SEC (24.5-34.5); Prothrombin Time 12.3 sec (9.3-11.8)
== END 2025-07-15 17:56 | disposition left against medical advice (07) ==
LOC: ER 14:49
DX: C56.9 Malignant neoplasm of unspecified ovary (principal); R18.0 Malignant ascites; R10.84 Generalized abdominal pain; F10.90 Alcohol use, unspecified, uncomplicated; F41.9 Anxiety disorder, unspecified; K21.9 Gastro-esophageal reflux disease without esophagitis; Z79.899 Other long term (current) drug therapy; Z79.890 Hormone replacement therapy; Z85.850 Personal history of malignant neoplasm of thyroid; Z87.19 Personal history of other diseases of the digestive system; Z87.440 Personal history of urinary (tract) infections; Z88.0 Allergy status to penicillin; Z88.1 Allergy status to other antibiotic agents; Z88.5 Allergy status to narcotic agent; Z88.8 Allergy status to other drugs, medicaments and biological substances; Z90.49 Acquired absence of other specified parts of digestive tract; Z90.710 Acquired absence of both cervix and uterus
CPT/HCPCS: 36415; 80053; 85025; 85610; 85730

== ENCOUNTER 2025-07-23 12:35 | Outpatient (CLI) | payer MEDICARE, OTHER ==
--- NOTE | 2025-07-23 14:03 | DVH ---
US PARACENTESIS, HISTORY: ASCITES PROCEDURE: Informed consent was obtained. The patient was placed in supine position. A limited locali zation ultrasound of the abdomen was obtained, and the skin site over the largest pocket of fluid was marked and entry site was prepped with chlorhexidine which was allowed to dry and draped in the usua l sterile fashion. Time out was performed. Following administration of 1% lidocaine local anesthetic, a 5 Indonesian centesis needle catheter was percutaneously inserted into the peritoneal collection until fluid was aspirated. The catheter was advanced into the fluid collection and the needle removed. Abo ut 5500 cc of fluid was aspirated . The catheter was then removed and a sterile dressing applied. No immediate complication was identified. FINDINGS: Limited ultrasound imaging demonstrates moderate ascites. Aspirated fluid was clear and ser ous. IMPRESSION: US-guided paracentesis with 5.5L removed.
[2025-07-24 13:07] LABS: Glucose, Body Fluid 152.0 mg/dL (.)
== END 2025-07-23 17:00 | disposition home or self-care (01) ==
LOC: US 12:35
PROVIDERS: ATTEND Internal Medicine Gastroenterology
DX: C56.3 Malignant neoplasm of bilateral ovaries (principal); R18.0 Malignant ascites; J44.9 Chronic obstructive pulmonary disease, unspecified; E03.9 Hypothyroidism, unspecified; Z79.899 Other long term (current) drug therapy; Z79.890 Hormone replacement therapy; Z87.891 Personal history of nicotine dependence; Z88.0 Allergy status to penicillin; Z88.2 Allergy status to sulfonamides; Z88.1 Allergy status to other antibiotic agents; Z88.8 Allergy status to other drugs, medicaments and biological substances
CPT/HCPCS: 49083; 83986; 87071; 87205; 89051; C1729; 76942

== ENCOUNTER 2025-08-10 13:06 | Outpatient (CLI) | payer MEDICARE, OTHER ==
--- NOTE | 2025-08-10 14:44 | DVH ---
US PARACENTESIS, HISTORY: ASCITES PROCEDURE: Informed consent was obtained. The patient was placed in supine position. A limited localization ultrasound of the abdomen was obtained, and the skin site over the largest pocket of fluid was marked and entry site was prepped with chlorhexidine which was allowed to dry and draped in the usual sterile fashion. Time out was performed. Following administration of 1% lidocaine local anesthetic, a 5 [place] centesis needle catheter was percutaneously inserted into the peritoneal collection until fluid was aspirated. The catheter was advanced into the fluid collection and the needle removed. About 3900 cc of fluid was aspirated . The catheter was then removed and a sterile dressing applied. No immediate complication was identified. FINDINGS: Limited ultrasound imaging demonstrates mild ascites. Aspirated fluid was clear and serous. IMPRESSION: US-guided paracentesis with 3.9L removed.
[2025-08-11 12:07] LABS: Glucose, Body Fluid 86.0 mg/dL (.)
== END 2025-08-10 17:00 | disposition home or self-care (01) ==
LOC: US 13:06
PROVIDERS: ATTEND Internal Medicine Hematology & Oncology
DX: R18.8 Other ascites (principal); C56.3 Malignant neoplasm of bilateral ovaries; C78.6 Secondary malignant neoplasm of retroperitoneum and peritoneum; Z79.82 Long term (current) use of aspirin; Z79.890 Hormone replacement therapy; Z79.899 Other long term (current) drug therapy; Z87.891 Personal history of nicotine dependence; Z88.0 Allergy status to penicillin; Z88.8 Allergy status to other drugs, medicaments and biological substances; Z91.041 Radiographic dye allergy status; Z82.49 Family history of ischemic heart disease and other diseases of the circulatory system; Z80.6 Family history of leukemia; Z82.5 Family history of asthma and other chronic lower respiratory diseases
CPT/HCPCS: 49083; 83986; 87071; 87205; 89051; C1729; 76705; 76942

== ENCOUNTER 2025-09-02 12:55 | Outpatient (CLI) | payer MEDICARE, OTHER ==
--- NOTE | 2025-09-02 13:50 | DVH ---
EXAM DESCRIPTION: US ABDOMEN LIMITED CLINICAL HISTORY: MALIGNANT ASCITES COMPARISON: ABDOMEN LIMITED on DOS: 05/18/22, ABDL on DOS: 05/18/22 FINDINGS: There is small volume ascities in the abdomen. IMPRESSION: 1. small volume ascites
== END 2025-09-02 17:00 | disposition home or self-care (01) ==
LOC: US 12:55
PROVIDERS: ATTEND Internal Medicine Hematology & Oncology
DX: C56.3 Malignant neoplasm of bilateral ovaries (principal); R18.0 Malignant ascites
CPT/HCPCS: 76705